=== PATIENT | male | born 1980 | race Caucasian/White ===

== ENCOUNTER 2023-01-13 12:41 | Emergency (ER) | payer BC, MEDICAID ==
[~2023-01-13] VITALS: Ht 170.2 cm; Wt 82.0 kg
[2023-01-13 12:47] VITALS: O2SAT 97
[2023-01-13] MEDS ORDERED: IBUPROFEN 600MG TABLET PO ONE (13:30)
[2023-01-13] MEDS ORDERED: IBUP-2029 MT (14:04)
[2023-01-13] MEDS ORDERED: IBUPROFEN 600MG TABLET PO NR (16:17)
[2023-01-13 16:50] VITALS: BP 132/84; PULSE 87; RESP 18; TEMP 98
== END 2023-01-13 16:51 | disposition home or self-care (01) ==
LOC: ER 12:55
DX: R07.89 Other chest pain (principal); M54.6 Pain in thoracic spine; V49.9XXA Car occupant (driver) (passenger) injured in unspecified traffic accident, initial encounter; Y93.89 Activity, other specified; Y92.89 Other specified places as the place of occurrence of the external cause; Y99.8 Other external cause status
CPT/HCPCS: 71045; 93005; 99283